=== PATIENT | female | born 1970 | race Caucasian/White ===

== ENCOUNTER → 2017-02-20 | Outpatient (CLI) | payer OTHER ==
--- NOTE | 2017-02-20 19:25 | Diagnostic Imaging Report ---
INDICATION: Digital mammogram bilateral screening. There are no prior studies available for comparison. At this time, there are no current complaints. The current study was also evaluated with a Computer Aided Detection (CAD) system. FINDINGS: The fibroglandular tissue in both breasts is heterogeneously dense. This does limit the sensitivity of this exam. In the retroareolar region of the right breast, there is a small area of increased density. This finding is probably secondary to superimposition of the fibroglandular tissue in this region. Even so, as there are no previous studies available for comparison, I would recommend that a compression view of this area be obtained in the CC and MLO projections for further study. Ultrasound should also be performed. The right breast is unremarkable. IMPRESSION: Additional mammographic views and ultrasound of the left breast would be recommended for further study. ACR BI-RADS Category 0: Incomplete. (Needs additional imaging evaluation). Result letter will be mailed to the patient. Note: At least 10% of breast cancer is not imaged by mammography. Dictated by: Dictated on workstation # [id number]
== END ==
LOC: RAD 08:07
DX: Z12.31 Encounter for screening mammogram for malignant neoplasm of breast (principal)
CPT/HCPCS: 77067

== ENCOUNTER → 2017-03-27 | Outpatient (CLI) | payer OTHER ==
--- NOTE | 2017-03-27 18:55 | Diagnostic Imaging Report ---
Left breast diagnostic mammogram. INDICATION: Focal asymmetry in the retroareolar aspect of the left breast. The current study was also evaluated with a Computer Aided Detection (CAD) system. FINDINGS: Focal compression views demonstrate no definite underlying lesion in the retroareolar area, the location of focal asymmetry seen on previous study. IMPRESSION: No definite underlying abnormality in the retroareolar region. Ultrasound evaluation pending. ACR BI-RADS Category 0: Incomplete. (Needs additional imaging evaluation). Result letter will be mailed to the patient. Note: At least 10% of breast cancer is not imaged by mammography. Dictated by: Dictated on workstation # [id number]
--- NOTE | 2017-03-27 19:13 | Diagnostic Imaging Report ---
Left breast ultrasound. INDICATION: Focal asymmetry in the retroareolar region. FINDINGS: Unremarkable breast parenchyma is seen with no focal lesion. IMPRESSION: Negative exam. The focal asymmetry seen on mammography is probably summation artifact of parenchyma. Six-month follow-up mammogram is recommended to ensure no adverse development. ACR BI-RADS Category 3: Probably benign findings. Result letter will be mailed to the patient. Note: At least 10% of breast cancer is not imaged by mammography. Dictated by: Dictated on workstation # [id number]
== END ==
LOC: RAD 13:30
DX: R92.8 Other abnormal and inconclusive findings on diagnostic imaging of breast (principal)
CPT/HCPCS: 76642

== ENCOUNTER → 2018-01-24 | Outpatient (CLI) | payer OTHER ==
--- NOTE | 2018-01-24 08:47 | Diagnostic Imaging Report ---
Indication: Followup of left breast density. Correlation is made with prior exam from 02/20/2017. Findings: The area of the density in the retroareolar left breast appears stable and consistent with fibroglandular tissue. No mass is identified. No malignant-appearing microcalcifications are seen. The axillae are unremarkable. Impression: BI-RADS category 1. No mammographic features suspicious for malignancy are identified. ACR BI-RADS Category 1: Negative. Result letter will be mailed to the patient. Note: At least 10% of breast cancer is not imaged by mammography. Dictated by: Dictated on workstation # [id number]
== END ==
LOC: RAD 07:43
PROVIDERS: ATTEND Nurse Practitioner Family
DX: N64.89 Other specified disorders of breast (principal)
CPT/HCPCS: 77066

== ENCOUNTER 2018-08-13 15:57 | Outpatient (RCR) | payer OTHER | END 2018-08-18 07:46 | disposition home or self-care (01) | PROVIDERS: ATTEND Family Medicine | DX: M25.512 Pain in left shoulder (principal) ==

== ENCOUNTER 2018-09-04 08:17 | Outpatient (RCR) | payer OTHER | END 2018-10-15 14:30 | disposition home or self-care (01) | PROVIDERS: ATTEND Family Medicine | DX: M25.512 Pain in left shoulder (principal) ==

== ENCOUNTER → 2019-03-31 | Outpatient (CLI) | payer OTHER ==
--- NOTE | 2019-03-31 15:58 | Diagnostic Imaging Report ---
INDICATION: Back pain TECHNIQUE: AP, Lateral imaging of the lumbar spine CORRELATION STUDY: None FINDINGS: There is mild leftward curvature of the lumbar spine, apex at L2 level. Lumbar vertebral body heights are overall fairly well maintained. There is diffuse disc space narrowing at all levels but most pronounced at the L3-L4, L4-L5 and L5-S1 levels. Mild endplate lipping. SI joints are unremarkable. IMPRESSION: No radiographic evidence for acute bony abnormality of the lumbar spine. Dictated by: Dictated on workstation # [id number]
--- NOTE | 2019-03-31 17:59 | Diagnostic Imaging Report ---
INDICATION: Back pain through the level of the neck through the lower back. No known injury. TECHNIQUE: AP, Lateral and Swimmers imaging of the thoracic spine. CORRELATION STUDY: None. FINDINGS: Rightward curvature of the [id number] thoracic spine, apex at T8 level with minimal leftward curvature superiorly of the thoracic spine and thoracolumbar junction. The kyphotic curvature is slightly reduced. The thoracic vertebral body heights demonstrate minimal anterior wedging in the mid aspect. Rather advanced multilevel disc space narrowing is noted with endplate lipping. An acute-appearing compression does not appear to be suggested. IMPRESSION: Rather advanced thoracic spondylosis. Multilevel disc space narrowing. Endplate osteophyte formation. Dictated on workstation # [id number]
--- NOTE | 2019-03-31 18:35 | Diagnostic Imaging Report ---
INDICATION: Neck pain. Abdominal bloating x1 week. TECHNIQUE: AP, lateral and odontoid views cervical spine. CORRELATION STUDY: None. FINDINGS: There is visualization of C1 through C6. The C6-C7 and C7-T1 levels are not well visualized despite accompanying swimmer's views of the thoracic spine study. There is straightening and reversal of the normal cervical lordosis. Alignment is otherwise anatomic. Slight anterior wedging at C4, C5, and C6 levels. Moderate disc space narrowing at C4-C5, C5-C6, and C6-C7 levels suggested. Prominent osteophytes, particularly anteriorly. The odontoid is unremarkable with the lateral masses of C1-C2 aligned. Prevertebral soft tissues are unremarkable. IMPRESSION: 1. Negative for acute findings of the cervical spine. Dictated on workstation # [id number]
== END ==
LOC: RAD 13:59
PROVIDERS: ATTEND Nurse Practitioner Family
DX: M47.814 Spondylosis without myelopathy or radiculopathy, thoracic region (principal); M51.34 Other intervertebral disc degeneration, thoracic region; M25.78 Osteophyte, vertebrae; M54.5 Low back pain; M54.2 Cervicalgia
CPT/HCPCS: 72040; 72072; 72100

== ENCOUNTER → 2019-07-13 | Outpatient (CLI) | payer OTHER ==
[2019-07-13 12:16] LABS: BASOPHILS % (AUTO) 0 % (0-10); EOSINOPHILS # (AUTO) 0.1 10^3/uL (0.0-0.3); EOSINOPHILS % (AUTO) 1 % (0-10); HEMATOCRIT 42 % (35-52); LYMPHOCYTES # (AUTO) 2.5 X 10^3 (1.0-4.0); LYMPHOCYTES % (AUTO) 29 % (12-44); MEAN CORPUSCULAR HEMOGLOBIN 29 PG (25-34); MEAN CORPUSCULAR HGB CONC 33 G/DL (32-36); MEAN CORPUSCULAR VOLUME 86 FL (80-99); MEAN PLATELET VOLUME 9.3 FL (7.4-10.4); MONOCYTES # (AUTO) 0.6 X 10^3 (0.0-1.0); MONOCYTES % (AUTO) 7 % (0-12); NEUTROPHILS # (AUTO) 5.4 X 10^3 (1.8-7.8); NEUTROPHILS % (AUTO) 63 % (42-75); PLATELET COUNT 314 10^3/uL (130-400); RED CELL DISTRIBUTION WIDTH 13.1 % (10.0-14.5); WHITE BLOOD COUNT 8.7 10^3/uL (4.3-11.0)
[2019-07-13 12:33] LABS: ALANINE AMINOTRANSFERASE 71 U/L (0-55); ALBUMIN 4.3 GM/DL (3.2-4.5); ALKALINE PHOSPHATASE 87 U/L (40-136); BILIRUBIN,TOTAL 0.2 MG/DL (0.1-1.0); BUN/CREATININE RATIO 14; CALCIUM 9.8 MG/DL (8.5-10.1); CARBON DIOXIDE 26 MMOL/L (21-32); CHLORIDE 103 MMOL/L (98-107); CREATININE SERUM 0.95 MG/DL (0.60-1.30); GFR ESTIMATED > 60; GLUCOSE 159 MG/DL (70-105); MAGNESIUM 1.7 MG/DL (1.6-2.4); POTASSIUM 4.1 MMOL/L (3.6-5.0); SODIUM 141 MMOL/L (135-145); TOTAL PROTEIN 8.1 GM/DL (6.4-8.2)
== END ==
LOC: CARD 11:58
PROVIDERS: ATTEND Nurse Practitioner Family
DX: M62.838 Other muscle spasm (principal); M25.50 Pain in unspecified joint; R00.0 Tachycardia, unspecified
CPT/HCPCS: 36415; 80053; 83735; 84484; 85025; 93005

== ENCOUNTER 2019-07-18 15:52 | Emergency (ER) | payer OTHER ==
[~2019-07-18] VITALS: Ht 162.6 cm; Wt 99.8 kg
--- NOTE | 2019-07-18 16:31 | ED Cardiac General ---
History of Present Illness General Chief Complaint: Cardiac/General Problems Stated Complaint: TROUBLE BREATHING,HIGH HEART RATE Nursing Triage Note: PT AMB TO RM 9 WITH COMPLAINT OF HIGH HR AND SOA. STATES THAT HAS BEEN GOING ON SINCE THE . STATES SHE SAW JUAN FRANCISCO AND HAD EKG DONE AT [facility]. Source: patient Exam Limitations: no limitations History of Present Illness Date Seen by Provider: Jul 18, 2019 Time Seen by Provider: 16:06 Initial Comments The patient presents to the ER for a post of concerns. Initially is that she is having a very fast heart rate. Nursing states that her heart rate is in the 80s presently. She's not having any chest pain. She been worked up by the nurse practitioner at her primary care office Dr. Wei for restless leg syndrome and feeling of some numbness and burning that comes on worse at night in her left arm ulnar distribution of her hand and upper arm all with her shoulder as well as bilateral legs. She does not have diabetes or any other kind of medical disease that she is aware of. Her primary care office thought she might have rheumatoid so sent her to a payroll tax analyst. She was told she did not have rheumatoid. She has not had any imaging of her back. No trauma to her back. She does express some hyperalgesia to light touch of her extremities. Her payroll tax analyst thought she might have fibromyalgia and started her on Cymbalta 3 weeks ago. While she was at the primary care office it was no cristina that her blood pressure was mildly elevated so they had her checking her blood pressure at rest routinely at home. After starting Cymbalta for the past couple weeks she has had elevated heart rate and went into her primary care office when it was 130s at rest and they sent her to the ER. She said she had EKG and labs and workup and told that it was okay and started her on metoprolol 25 mg succinate. Earlier this week she had an elevated heart rate in the 1 teens to 120s regular and called her primary care office and Dr. Wei increased her metoprolol to 1-1/2 tablets daily. Last night she still had elevated heart rate as well as today so she came to the ER again. For the past day she's had some described as occasional crushing chest pain, sweats and nausea. This does not radiate anywhere. She is not feeling short of breath right now. She does not take blood thinner have a history of coronary disease. She denies smoking drinking or IV drug use. After reading on the Internet she's concerned that maybe the Cymbalta is causing her racing heart rate says she has no family history of coronary disease or rapid heart rate so she stopped taking the Cymbalta today. Allergies and Home Medications Allergies Coded Allergies: NKANo Known Allergies (Unverified Allergy, Unknown, 12/19/06) levofloxacin (Verified Allergy, Unknown, 07/18/19) Patient Home Medication List Home Medication List Reviewed: Yes Review of Systems Review of Systems Constitutional: chills, diaphoresis; No fever, No malaise EENTM: No Blurred Vision, No Double Vision Respiratory: Denies Cough, Denies Shortness of Air, Denies Wheezing Cardiovascular: See HPI, Chest Pain; Denies Edema Gastrointestinal: Denies Constipated, Denies Diarrhea; Nausea; Denies Vomiting Genitourinary: Denies Discharge, Denies Drainage Musculoskeletal: No back pain, No joint pain Skin: No pruritus, No rash Past Qngiitp-Thdegf-Ybdewt Hx Patient Social History Alcohol Use: Denies Use Recreational Drug Use: No Smoking Status: Never a Smoker Recent Foreign Travel: No Contact w/Someone Who Travel: No Recent Infectious Disease Expo: No Recent Hopitalizations: No Physical Abuse: No Sexual Abuse: No Seasonal Allergies Seasonal Allergies: No Past Medical History Surgeries: Yes Abdominal, Hysterectomy, Orthopedic Respiratory: No Cardiac: Yes Hypertension Neurological: No 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 oz. 99.689003eq; BMI Method:Stated General Appearance: No Apparent Distress, WD/WN, Anxious HEENT: PERRL/EOMI, Pharynx Normal, Moist Mucous Membranes Neck: Full Range of Motion, Supple Respiratory: Chest Non Tender, Lungs Clear, Normal Breath Sounds, No Accessory Muscle Use, No Respiratory Distress Cardiovascular: Regular Rate, Rhythm, Normal Peripheral Pulses, Other (trace bilateral pedal edema) Gastrointestinal: Normal Bowel Sounds, Non Tender, Soft Extremity: Normal Capillary Refill, Normal Range of Motion, No Pedal Edema Neurologic/Psychiatric: Alert, Oriented x3, No Motor/Sensory Deficits Skin: Normal Color, Warm/Dry Progress/Results/Core Measures Results/Orders Lab Results Laboratory Tests Test 07/18/19 16:12 Range/Units White Blood Count 8.3 4.3-11.0 10^3/uL Red Blood Count 5.03 4.35-5.85 10^6/uL Hemoglobin 14.3 11.5-16.0 G/DL Hematocrit 43 35-52 % Mean Corpuscular Volume 85 80-99 FL Mean Corpuscular Hemoglobin 28 25-34 PG Mean Corpuscular Hemoglobin Concent 33 32-36 G/DL Red Cell Distribution Width 13.1 10.0-14.5 % Platelet Count 362 130-400 10^3/uL Mean Platelet Volume 9.2 7.4-10.4 FL Neutrophils (%) (Auto) 56 42-75 % Lymphocytes (%) (Auto) 36 12-44 % Monocytes (%) (Auto) 7 0-12 % Eosinophils (%) (Auto) 2 0-10 % Basophils (%) (Auto) 0 0-10 % Neutrophils # (Auto) 4.6 1.8-7.8 X 10^3 Lymphocytes # (Auto) 3.0 1.0-4.0 X 10^3 Monocytes # (Auto) 0.6 0.0-1.0 X 10^3 Eosinophils # (Auto) 0.1 0.0-0.3 10^3/uL Basophils # (Auto) 0.0 0.0-0.1 10^3/uL Prothrombin Time 12.5 12.2-14.7 SEC INR Comment 0.9 0.8-1.4 Activated Partial Thromboplast Time 25 24-35 SEC Sodium Level 140 135-145 MMOL/L Potassium Level 3.8 3.6-5.0 MMOL/L Chloride Level 103 98-107 MMOL/L Carbon Dioxide Level 24 21-32 MMOL/L Anion Gap 13 5-14 MMOL/L Blood Urea Nitrogen 12 7-18 MG/DL Creatinine 0.83 0.60-1.30 MG/DL Estimat Glomerular Filtration Rate > 60 BUN/Creatinine Ratio 14 Glucose Level 121 H 70-105 MG/DL Calcium Level 9.6 8.5-10.1 MG/DL Corrected Calcium 9.2 8.5-10.1 MG/DL Magnesium Level 1.6 1.6-2.4 MG/DL Total Bilirubin 0.3 0.1-1.0 MG/DL Aspartate Amino Transf (AST/SGOT) 21 5-34 U/L Alanine Aminotransferase (ALT/SGPT) 38 0-55 U/L Alkaline Phosphatase 102 40-136 U/L Myoglobin 45.2 10.0-92.0 NG/ML Troponin I < 0.028 <0.028 NG/ML Total Protein 8.6 H 6.4-8.2 GM/DL Albumin 4.5 3.2-4.5 GM/DL My Orders Orders - LAKHWINDER JENKINS Continuous Ekg Monitoring (07/18/19 15:54) Ekg Tracing (07/18/19 15:54) Cbc With Automated Diff (07/18/19 16:25) Comprehensive Metabolic Panel (07/18/19 16:25) Troponin I (07/18/19 16:25) Aspirin Chewable Tablet (Baby Aspirin Ch (07/18/19 16:45) Magnesium (07/18/19 16:32) Chest 1 View, Ap/Pa Only (07/18/19 16:32) Myoglobin Serum (07/18/19 16:32) Protime With Inr (07/18/19 16:32) Partial Thromboplastin Time (07/18/19 16:32) Ed Iv/Invasive Line Start (07/18/19 16:32) Nitroglycerin 0.4 Mg Btl 25's (Nitrostat (07/18/19 16:45) Troponin I (07/18/19 18:02) Medications Given in ED Current Medications Medications Dose Ordered Sig/Josiah Route Start Time Stop Time Status Last Admin Dose Admin Aspirin 324 mg ONCE ONCE PO 07/18/19 16:45 07/18/19 16:46 DC 07/18/19 16:45 324 MG Nitroglycerin 0.4 mg NEEDED PRN SL 07/18/19 16:45 07/18/19 17:20 0.4 MG Vital Signs/I&O 07/18/19 15:56 Temp 98.3 Pulse 106 Resp 13 B/P (MAP) 163/108 (126) Pulse Ox 99 O2 Delivery Room Air Blood Pressure Mean: 126 Progress Progress Note #1: Time: 16:34 Progress Note Chest pain since yesterday. Not presently. Patient doesn't appear to be in acute distress and has normal vital signs with a mildly elevated blood pressure. We'll give her some aspirin. EKG sinus rhythm. Labs included troponin. Patient does have an EKG on file tachycardia 118 sinus rhythm however she does not have a ER note associated with it. She clarifies that she did come over EKG but did not come to the ER. She is still having a little tightness in the middle of her chest and try nitroglycerin as long as her blood pressure stays up. Progress Note #2: Time: 18:04 Progress Note Heart score 2 points low risk. 0.91.7% 30-day MACE. Repeat troponin at 3 hours and if negative, discharge home with outpatient follow-up. The patient says the nitroglycerin may have felt a little bit but her tightness in her chest is not as intense now than it was before but had no immediate effect. Plan will be to help her discontinue her Cymbalta. She wants to stop it since it coincides with the time she started experiencing the sinus tachycardia. Give it every other day for a few more days. Increase her metoprolol to 50 mg and stop taking the tablet in half. Follow-up with primary care in a couple weeks to see if this has improved her symptoms. Offered her a referral to cardiology if she would like help managing her symptoms. Initial ECG Impression Date: Jul 18, 2019 Initial ECG Impression Time: 16:05 Initial ECG Rate: 89 Initial ECG Rhythm: Normal Sinus Initial ECG Intervals: Normal Initial ECG Impression: Normal Comment Normal sinus rhythm without ST changes. Lateral lead respiratory motion artifact. Diagnostic Imaging Diagonstic Imaging: Xray Plain Films/CT/US/NM/MRI: chest (1v) Comments NAME: GIO WHITNEY MED REC#: [id number] PT STATUS: REG ER : 1970 PHYSICIAN: LAKHWINDER JENKINS MD ADMIT DATE: 07/18/19/ER Signed Date of Exam:07/18/19 CHEST 1 VIEW, AP/PA ONLY INDICATION: Dyspnea. COMPARISON: 02/23/2010. DISCUSSION: Single portable upright view of the chest was obtained. No adverse interval change. Stable normal heart size. No focal consolidation, pleural fluid, or pneumothorax. No osseous abnormality. IMPRESSION: 1. Negative portable chest. Dictated by: Dictated on workstation # [id number] Dict: 07/18/19 165 Trans: 07/18/191654 [facility] [id number] Interpreted by: XIANG GRANDE MD Electronically signed by: XIANG GRANDE MD 07/18/191654 Reviewed: Reviewed by Me Transfer of Care Time: 18:20 Care transferred to: Ajit Mares APRN Departure Impression Primary Impression: Chest discomfort Additional Impression: Inappropriate sinus tachycardia Disposition: 01 HOME, SELF-CARE Condition: Stable Departure-Patient Inst. Decision time for Depature: 18:20 Referrals: MARLENE WEI MD (PCP/Family) Primary Care Physician RAUL CORTES MD Patient Instructions: Tachycardia (DC) Add. Discharge Instructions: Please return to the nearest ER if you experience chest pain or shortness of breath. Start taking 2 tablets of your metoprolol for a total of 50 mg a day. If you start to have symptoms of lightheadedness or brownouts on rising from sitting or lying then you should reduce the metoprolol back to one tablet daily. Take your Cymbalta tomorrow, skip a day and then take another tablet. Plan to follow up in 2 weeks with primary care to discuss whether stopping the Cymbalta or changing the metoprolol has helped your symptoms. You may call and follow up with cardiology next week if you wish for help managing your tachycardia. All discharge instructions reviewed with patient and/or family. Voiced understanding. Scripts Metoprolol Succinate (Metoprolol Succinate) 25 Mg Tab.er.24h 50 MG PO DAILY for 14 Days, #30 TAB 0 Refills Prov: LAKHWINDER JENKINS 07/18/19 Copy Copies To 1: RAUL CORTES MD, TITUS J Jul 18, 2019 16:31
[2019-07-18 16:35] LABS: BASOPHILS % (AUTO) 0 % (0-10); EOSINOPHILS # (AUTO) 0.1 10^3/uL (0.0-0.3); EOSINOPHILS % (AUTO) 2 % (0-10); HEMATOCRIT 43 % (35-52); HEMOGLOBIN 14.3 G/DL (11.5-16.0); LYMPHOCYTES % (AUTO) 36 % (12-44); MEAN CORPUSCULAR HEMOGLOBIN 28 PG (25-34); MEAN CORPUSCULAR HGB CONC 33 G/DL (32-36); MEAN CORPUSCULAR VOLUME 85 FL (80-99); MEAN PLATELET VOLUME 9.2 FL (7.4-10.4); MONOCYTES # (AUTO) 0.6 X 10^3 (0.0-1.0); MONOCYTES % (AUTO) 7 % (0-12); NEUTROPHILS # (AUTO) 4.6 X 10^3 (1.8-7.8); NEUTROPHILS % (AUTO) 56 % (42-75); PLATELET COUNT 362 10^3/uL (130-400); RED CELL DISTRIBUTION WIDTH 13.1 % (10.0-14.5); WHITE BLOOD COUNT 8.3 10^3/uL (4.3-11.0)
[2019-07-18] MEDS ORDERED: ASPIRIN 81 MG CHEW (CHILDREN'S ASA) PO ONE (16:45)
[2019-07-18] MEDS ORDERED: NITROGLYCERIN 0.4 MG SL TABS BTL 25'S SL PRN (16:45)
--- NOTE | 2019-07-18 16:53 | Diagnostic Imaging Report ---
INDICATION: Dyspnea. COMPARISON: 02/23/2010. DISCUSSION: Single portable upright view of the chest was obtained. No adverse interval change. Stable normal heart size. No focal consolidation, pleural fluid, or pneumothorax. No osseous abnormality. IMPRESSION: 1. Negative portable chest. Dictated by: Dictated on workstation # [id number]
[2019-07-18 16:56] LABS: ALANINE AMINOTRANSFERASE 38 U/L (0-55); ALBUMIN 4.5 GM/DL (3.2-4.5); ALKALINE PHOSPHATASE 102 U/L (40-136); BILIRUBIN,TOTAL 0.3 MG/DL (0.1-1.0); BUN/CREATININE RATIO 14; CALCIUM 9.6 MG/DL (8.5-10.1); CARBON DIOXIDE 24 MMOL/L (21-32); CHLORIDE 103 MMOL/L (98-107); CREATININE SERUM 0.83 MG/DL (0.60-1.30); GFR ESTIMATED > 60; GLUCOSE 121 MG/DL (70-105); MAGNESIUM 1.6 MG/DL (1.6-2.4); POTASSIUM 3.8 MMOL/L (3.6-5.0); SODIUM 140 MMOL/L (135-145); TOTAL PROTEIN 8.6 GM/DL (6.4-8.2)
[2019-07-18 17:03] LABS: INR 0.9 (0.8-1.4); PROTHROMBIN TIME PATIENT 12.5 SEC (12.2-14.7)
[2019-07-18] MEDS ORDERED: METO-387 PO (18:23)
--- NOTE | 2019-07-18 19:00 | NUR ---
Recieved report from RASHIDA Gifford to assume care of pt @ this time.
[2019-07-18 19:30] VITALS: BP 147/96
== END 2019-07-18 19:30 | disposition home or self-care (01) ==
LOC: EDUNIT# 15:52 → ER 15:53
DX: R07.89 Other chest pain (principal); R00.0 Tachycardia, unspecified; I10 Essential (primary) hypertension; M79.7 Fibromyalgia; E11.9 Type 2 diabetes mellitus without complications; Z88.1 Allergy status to other antibiotic agents; Z90.710 Acquired absence of both cervix and uterus
CPT/HCPCS: 36415; 71045; 80053; 83735; 83874; 84484; 85025; 85610; 85730; 93005

== ENCOUNTER 2019-08-20 08:11 | Outpatient (RCR) | payer OTHER ==
[~2019-08-20 08:11] MED LIST: METO-387 PO
== END 2019-11-18 | disposition home or self-care (01) ==
LOC: CARD 08:11
PROVIDERS: ATTEND Internal Medicine Cardiovascular Disease
DX: I11.9 Hypertensive heart disease without heart failure (principal); E78.2 Mixed hyperlipidemia; E11.9 Type 2 diabetes mellitus without complications; R07.89 Other chest pain
CPT/HCPCS: 93225; 93226; 93306

== ENCOUNTER → 2019-10-07 | Outpatient (CLI) | payer OTHER ==
[2019-10-07 17:40] VITALS: BP 138/80
--- NOTE | 2019-10-07 17:40 | Cardiology Stress Test Report ---
Stress Test Report Date of Procedure/Referring: Date of Procedure: Oct 07, 2019 PCP Deepa Herrera Admitting Physician Buffy Wei MD Indications: cp Baseline Heart Rate: 108 Baseline Blood Pressure: Blood Pressure Systolic: 138 Blood Pressure Diastolic: 80 Baseline EKG: Baseline EKG: Normal sinus rhythm Summary/Conclusion: Summary: In summary, the patient started exercising with a baseline heart rate, blood pressure and EKG mentioned above Patient was able to exercise for a total of 9 minutes on Jean-Pierre protocol, 10.3 METs Maximum heart rate 153 Maximum blood pressure 157/76 Stress EKG Minimal nondiagnostic changes Recovery EKG Return to baseline Conclusion: 1. Good exercise tolerance for a total of 9 minutes on Jean-Pierre protocol, 10.3 METs, achieving 89 percent of maximum expected heart rate 2. Minimal nondiagnostic EKG changes with exercise returned to baseline during recovery 3. No arrhythmia was noted RAUL CORTES MD Oct 07, 2019 17:40 POS
== END ==
LOC: CARD 13:49
PROVIDERS: ATTEND Physician Assistant
DX: E78.2 Mixed hyperlipidemia (principal); I10 Essential (primary) hypertension; R00.0 Tachycardia, unspecified; R09.89 Other specified symptoms and signs involving the circulatory and respiratory systems
CPT/HCPCS: 93017

== ENCOUNTER → 2019-10-20 | Outpatient (CLI) | payer OTHER ==
--- NOTE | 2019-10-20 12:29 | Diagnostic Imaging Report ---
INDICATION: Dyspnea. FINDINGS: The lungs are clear. The heart and vessels are normal. There is no effusion or pneumothorax. IMPRESSION: No acute-appearing abnormality. Dictated by: Dictated on workstation # [id number]
[2019-10-20 12:37] LABS: ABG BASE EXCESS 1.1 MMOL/L (-2.5-2.5); ABG OXYGEN SATURATION 96 % (94-100); ABG PCO2 40 MMHG (35-45); ABG PH 7.41 (7.37-7.43); ABG PO2 74 MMHG (79-93); ABG TCO2 26.7 MMOL/L (21.0-31.0)
[2019-10-20 12:39] LABS: ALLENS TEST YES-POS; INSPIRED O2 RA; PATIENT TEMP 36; VENTILATOR NO
== END ==
LOC: RAD 11:44
PROVIDERS: ATTEND Nurse Practitioner Family
DX: G47.33 Obstructive sleep apnea (adult) (pediatric) (principal); K90.0 Celiac disease; R07.89 Other chest pain
CPT/HCPCS: 36600; 71046; 82805

== ENCOUNTER → 2019-11-16 | Outpatient (CLI) | payer OTHER ==
[~2019-11-16] MED LIST changes: +RT-ALBUTEROL SULF 2.5 MG/3 ML PRE-MIX VIAL INH ONE
== END ==
LOC: RT 12:57
PROVIDERS: ATTEND Nurse Practitioner Family
DX: G47.33 Obstructive sleep apnea (adult) (pediatric) (principal); K90.0 Celiac disease; R06.00 Dyspnea, unspecified
CPT/HCPCS: 94060; 94726; 94729

== ENCOUNTER → 2020-01-06 | Outpatient (CLI) | payer OTHER ==
[~2020-01-06] MED LIST changes: +HOLD METFORMIN - RECEIVED CONTRAST 20 ML VIAL IV SCH; +IOHEXOL 350 MG/ML 100 ML (OMNIPAQUE 350) VIAL IV ONE; -METO-387 PO; +MTP25TSR PO; +NS 100 ML (IVPB) BAG IV ONE; -RT-ALBUTEROL SULF 2.5 MG/3 ML PRE-MIX VIAL INH ONE
[2020-01-06 12:15] LABS: BUN/CREATININE RATIO 19; CREATININE SERUM 0.78 MG/DL (0.60-1.30); GFR ESTIMATED > 60
--- NOTE | 2020-01-06 13:11 | Diagnostic Imaging Report ---
PROCEDURE: CT angiography of the chest with contrast. TECHNIQUE: Multiple contiguous axial images were obtained through the chest after uneventful bolus administration of intravenous contrast. 3D reconstructed CTA MIP acquisitions were also performed. Auto Exposure Controls were utilized during the CT exam to meet ALARA standards for radiation dose reduction. INDICATION: Leg pain, swelling, difficulty with breathing. FINDINGS: There are no intraluminal pulmonary arterial filling defects. There were no findings of pulmonary arterial embolus. The thoracic aorta is patent and nonaneurysmal. There is no pleural or pericardial effusion. No acute soft tissue or osseous chest wall pathology. The heart size is within normal limits. There were no findings of pulmonary edema or failure. No pleural fluid. No consolidation. No lung mass. Upper abdomen demonstrates previous cholecystectomy with no free fluid or free air. IMPRESSION: Negative for PE or other acute abnormalities. Dictated by: Dictated on workstation # [id number]
--- NOTE | 2020-01-06 13:43 | Diagnostic Imaging Report ---
PROCEDURE: US Venous Lower Ext Asael. TECHNIQUE: Multiple Real-time grayscale images were obtained over the lower extremities in various projections, bilaterally. Additional duplex Doppler and color Doppler images were also obtained. INDICATION: Lower extremity swelling. FINDINGS: The femoropopliteal deep venous system bilaterally is widely patent. No deep or superficial thrombus. No mass or fluid collection is demonstrated. IMPRESSION: Normal negative bilateral lower extremity venous Doppler and ultrasound exam. Dictated by: Dictated on workstation # [id number]
== END ==
LOC: RAD 11:20
PROVIDERS: ATTEND Nurse Practitioner Family
DX: M79.89 Other specified soft tissue disorders (principal); R06.89 Other abnormalities of breathing; M79.606 Pain in leg, unspecified; R06.00 Dyspnea, unspecified; G47.33 Obstructive sleep apnea (adult) (pediatric)
CPT/HCPCS: 36415; 71275; 82565; 84520; 93970

== ENCOUNTER → 2021-11-22 | Outpatient (CLI) | payer OTHER ==
[~2021-11-22] MED LIST changes: -HOLD METFORMIN - RECEIVED CONTRAST 20 ML VIAL IV SCH; -IOHEXOL 350 MG/ML 100 ML (OMNIPAQUE 350) VIAL IV ONE; -NS 100 ML (IVPB) BAG IV ONE
--- NOTE | 2021-11-22 09:53 | Diagnostic Imaging Report ---
Digital mammogram INDICATION: Bilateral screening This study was compared to the prior exams of 01/24/2018 and 02/20/2017. At this time there are no current complaints. The current study was also evaluated with a Computer Aided Detection (CAD) system. FINDINGS: The fibroglandular tissue in both breasts is heterogeneously dense. This does limit the sensitivity of this exam. Overall, there does not appear to have been any significant change when compared to the prior study. No primary or secondary sign of malignancy is noted. IMPRESSION: 1. There is no radiographic evidence for malignancy. 2. The patient should have her annual bilateral screening mammogram on schedule in November 2022. ACR category 1 ACR BI-RADS Category 1: Negative. Result letter will be mailed to the patient. Note: At least 10% of breast cancer is not imaged by mammography. Dictated by: Dictated on workstation # [id number]
== END ==
LOC: RAD 07:19
PROVIDERS: ATTEND Family Medicine
DX: Z12.31 Encounter for screening mammogram for malignant neoplasm of breast (principal)
CPT/HCPCS: 77063; 77067

== ENCOUNTER → 2022-01-02 | Outpatient (CLI) | payer OTHER ==
[2022-01-02 11:40] LABS: HEMATOCRIT 40 % (35-52); HEMOGLOBIN 12.9 g/dL (11.5-16.0); MEAN CORPUSCULAR HEMOGLOBIN 28 pg (25-34); MEAN CORPUSCULAR HGB CONC 32 g/dL (32-36); MEAN CORPUSCULAR VOLUME 87 fL (80-99); MEAN PLATELET VOLUME 9.3 fL (9.0-12.2); PLATELET COUNT 262 10^3/uL (130-400); WHITE BLOOD COUNT 7.5 10^3/uL (4.3-11.0)
--- NOTE | 2022-01-02 11:55 | Diagnostic Imaging Report ---
CHEST PA/LAT (2 VIEW) Indication: Cough, shortness of breath Comparison: 10/30/2019 Findings: No pulmonary mass or consolidation. No pleural effusion or pneumothorax. Normal heart size and mediastinal contours. Impression: No acute cardiopulmonary process. Dictated by: Dictated on workstation # [id number]
[2022-01-02 12:04] LABS: ALBUMIN 3.8 GM/DL (3.2-4.5); BILIRUBIN,TOTAL 0.4 MG/DL (0.1-1.0); CREATININE SERUM 0.76 MG/DL (0.60-1.30); TOTAL PROTEIN 7.2 GM/DL (6.4-8.2)
== END ==
LOC: RAD 11:06
PROVIDERS: ATTEND Nurse Practitioner Family
DX: R05.8 Other specified cough (principal); R06.02 Shortness of breath; E11.9 Type 2 diabetes mellitus without complications; Z86.16 Personal history of COVID-19
CPT/HCPCS: 36415; 71046; 80053; 83036; 85027; 85379

== ENCOUNTER 2022-11-08 12:19 | Outpatient (RCR) | payer OTHER ==
[2022-11-01] MEDS: FERRIC CARBOXYMALTOSE INJ 750 MG in NS (IVPB) 250 ML IV SCH (12:52)
[2022-11-01 12:54] VITALS: BP 134/92
[~2022-11-08] VITALS: Ht 165.1 cm; Wt 90.9 kg
[2022-11-08] MEDS: FERRIC CARBOXYMALTOSE INJ 750 MG in NS (IVPB) 250 ML IV SCH (12:46)
[2022-11-08 12:53] VITALS: BP 128/81
== END 2022-11-17 | disposition home or self-care (01) ==
LOC: SDC 12:19
PROVIDERS: ATTEND Nurse Practitioner Family
DX: D50.9 Iron deficiency anemia, unspecified (principal)
CPT/HCPCS: 96365

== ENCOUNTER → 2023-05-07 | Outpatient (CLI) | payer OTHER ==
[~2023-05-07] MED LIST changes: +RT-ALBUTEROL SULF 2.5 MG/3 ML PRE-MIX VIAL INH ONE
== END ==
LOC: RT 12:04
PROVIDERS: ATTEND Nurse Practitioner Family
DX: R06.02 Shortness of breath (principal)
CPT/HCPCS: 94060; 94726; 94729

== ENCOUNTER → 2023-06-11 | Outpatient (CLI) | payer OTHER ==
[~2023-06-11] MED LIST changes: +HOLD METFORMIN - RECEIVED CONTRAST 20 ML VIAL IV SCH; +IOHEXOL 350 MG/ML 100 ML (OMNIPAQUE 350) VIAL IV ONE; +NS 100 ML (IVPB) BAG IV ONE; -RT-ALBUTEROL SULF 2.5 MG/3 ML PRE-MIX VIAL INH ONE
--- NOTE | 2023-06-11 13:23 | Diagnostic Imaging Report ---
INDICATION: Chest pain and tightness. TECHNIQUE: Multiple contiguous axial images were obtained through the chest after administration of intravenous contrast. Auto Exposure Controls were utilized during the CT exam to meet ALARA standards for radiation dose reduction. COMPARISON: Prior CT of 01/06/2020. FINDINGS: There are no enlarged mediastinal or hilar nodes. There are no enlarged axillary nodes. There is no pleural or pericardial fluid. The visualized portions of the upper abdomen demonstrate mild fatty infiltration of the liver with no acute finding. There are diffuse degenerative changes in the thoracic spine with no overt acute bony abnormality. Lung windows demonstrate a small 5 mm pulmonary nodule in the right upper lobe laterally which appears unchanged compared to the prior study. There is no pulmonary infiltrate or suspicious lesion. IMPRESSION: No adenopathy, pleural fluid, or acute process in the chest. There is mild fatty infiltration of the liver. There is a small 5 mm pulmonary nodule in the right upper lobe which is stable compared to 01/06/2020 and therefore could be considered a benign finding. Dictated by: Dictated on workstation # [id number]
== END ==
LOC: RAD 11:15
PROVIDERS: ATTEND Nurse Practitioner Family
DX: K76.0 Fatty (change of) liver, not elsewhere classified (principal); R91.1 Solitary pulmonary nodule; R06.02 Shortness of breath; R07.9 Chest pain, unspecified
CPT/HCPCS: 71260

== ENCOUNTER 2023-07-17 05:52 | Outpatient (CLI) | payer OTHER ==
[~2023-07-17] VITALS: Ht 165 cm; Wt 113.8 kg
[~2023-07-17 05:52] MED LIST changes: -HOLD METFORMIN - RECEIVED CONTRAST 20 ML VIAL IV SCH; -IOHEXOL 350 MG/ML 100 ML (OMNIPAQUE 350) VIAL IV ONE; -NS 100 ML (IVPB) BAG IV ONE
[2023-07-19] MEDS ORDERED: METF-399 PO (13:47)
[2023-07-19] MEDS ORDERED: HYDR-3820 PO (13:47)
[2023-07-19] MEDS ORDERED: LOSA50TA63 PO (13:47)
[2023-07-19] MEDS ORDERED: ALBU90AE2 IH (13:47)
[2023-07-19] MEDS ORDERED: FLUT9.9S NS (13:47)
[2023-07-19] MEDS ORDERED: LEVO175C2 PO (13:47)
[2023-07-19] MEDS ORDERED: POTA-330 PO (13:47)
[2023-07-19] MEDS ORDERED: FURO20TA4 PO (13:47)
[2023-07-19] MEDS ORDERED: PREG300C19 PO (13:47)
[2023-07-19] MEDS ORDERED: LEVO200C2 PO (13:47)
[2023-07-19] MEDS ORDERED: MAGN250T13 PO (13:47)
[2023-07-19] MEDS ORDERED: CNC1KV IM (13:47)
[2023-07-19] MEDS ORDERED: ERGO1250 PO (13:47)
== END 2023-07-19 14:17 | disposition home or self-care (01) ==
LOC: PREOP 05:52
PROVIDERS: ATTEND Surgery
DX: Z01.818 Encounter for other preprocedural examination (principal)

== ENCOUNTER → 2023-07-25 | Outpatient (CLI) | payer OTHER ==
[~2023-07-25] MED LIST changes: +ALBU90AE2 IH; +BARIUM for suspension 96% w/w (Vanilla Silq Medium Density) PO ONE; +BARIUM for suspension 98% w/w (Vanilla Silq High Density) PO ONE; +CNC1KV IM; +ERGO1250 PO; +FLUT9.9S NS; +FURO20TA4 PO; +HYDR-3820 PO; +LEVO175C2 PO; +LEVO200C2 PO; +LOSA50TA63 PO; +MAGN250T13 PO; +METF-399 PO; +PANT40TA2 PO; +POTA-330 PO; +PREG300C19 PO; +SUCR1TAB36 PO
--- NOTE | 2023-07-25 11:20 | Diagnostic Imaging Report ---
INDICATION: Difficulty swallowing liquids and pills, getting stuck in the mid throat. TECHNIQUE: Patient ingested effervescent crystals as well as thin and thick barium, and imaging of the esophagus was performed at multiple obliquities. 45 seconds of fluoroscopic time was utilized. Reference air kerma is 45.6 mGy. 28 images were obtained. FINDINGS: Preliminary radiograph of the chest is unremarkable. The esophagus has a smooth contour. No mass or stricture is identified. No hiatal hernia or gastroesophageal reflux was demonstrated. IMPRESSION: Unremarkable esophagram. Dictated by: Dictated on workstation # [id number]
== END ==
LOC: RAD 09:54
PROVIDERS: ATTEND Surgery
DX: R13.10 Dysphagia, unspecified (principal)
CPT/HCPCS: 74220

== ENCOUNTER 2023-07-30 07:38 | Day surgery (SDC) | payer OTHER ==
[~2023-07-30] VITALS: Ht 165.1 cm; Wt 113.8 kg
[~2023-07-30 07:38] MED LIST changes: -BARIUM for suspension 96% w/w (Vanilla Silq Medium Density) PO ONE; -BARIUM for suspension 98% w/w (Vanilla Silq High Density) PO ONE; -PANT40TA2 PO; -SUCR1TAB36 PO
[2023-07-30] MEDS ORDERED: LACTATED RINGERS 1,000 ML 1,000 ML IV STA (07:49)
[2023-07-30 07:59] VITALS: BP 139/74
[2023-07-30] MEDS ORDERED: HURRICAINE EXT TUBE (BENZOCAINE) XX PRN (08:00)
--- NOTE | 2023-07-30 08:02 | Progress Note-Pre Operative ---
Pre-Operative Progress Note Date H&P Reviewed: Jul 30, 2023 Time H&P Reviewed: 08:02 History & Physical: H&P Reviewed, Patient Examed, No changes noted Pre-Operative Diagnosis: epigastric pain, screening colonoscopy LENNY PARKS DO Jul 30, 2023 08:02
[2023-07-30] MEDS ORDERED: MIDAZOLAM INJ 2 MG/2 ML VIAL ONE (08:31)
[2023-07-30] MEDS ORDERED: KETAMINE 50 MG/5 ML SYRINGE ONE (08:40)
[2023-07-30 09:05] VITALS: BP 113/72
--- NOTE | 2023-07-30 09:05 | Progress Note-Post Operative ---
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
[2023-07-30 09:10] VITALS: BP 117/57
[2023-07-30] MEDS ORDERED: SUCR1TAB36 PO (09:11)
[2023-07-30] MEDS ORDERED: PANT40TA2 PO (09:11)
--- NOTE | 2023-07-30 09:13 | Discharge Inst-Simple/Standard ---
Discharge Inst-Standard Discharge Medications New, Converted or Re-Newed RX: Transmitted to Pharmacy Patient Instructions/Follow Up Plan of Care/Instructions/FU: 2 weeks idris Activity as Tolerated: Yes Discharge Diet: Regular Diet LENNY PARKS DO Jul 30, 2023 09:13
[2023-07-30 09:40] VITALS: BP 117/57
--- NOTE | 2023-07-30 12:04 | Anesthesia-General Post-Op ---
MAC Patient Condition Mental Status/LOC: Same as Preop Cardiovascular: Satisfactory Nausea/Vomiting: Absent Respiratory: Satisfactory Pain: Controlled Complications: Absent Post Op Complications Complications None Follow Up Care/Instructions Patient Instructions None needed. Anesthesiology Discharge Order Discharge Order Patient is doing well, no complaints, stable vital signs, no apparent adverse anesthesia problems. No complications reported per nursing. ARIEL PATEL CRNA Jul 30, 2023 12:04
--- NOTE | 2023-07-30 17:44 | OPERATIVE REPORT ---
DATE OF SERVICE: 07/30/2023 PREOPERATIVE DIAGNOSES: Epigastric pain, screening colonoscopy. POSTOPERATIVE DIAGNOSES: Gastritis, superficial ulcerations in the antrum, colon polyps. PROCEDURES: EGD with biopsies, colonoscopy with hot biopsy polypectomy and snare polypectomy. SURGEON: Lenny Ny DO ANESTHESIA: Per RECEIVING MANAGER. ESTIMATED BLOOD LOSS: None. COMPLICATIONS: None. INDICATIONS: The patient is a 53-year-old female, with epigastric abdominal pain and needing screening colonoscopy. She understands risks and benefits of procedures and wished to proceed. Consent was signed in chart. DESCRIPTION OF PROCEDURE: The patient was taken to endoscopy suite, placed in left lateral recumbent position. Timeout was performed. Scope was inserted in the mouth, down the esophagus, stomach, and into the duodenum without difficulty. No polyps, masses or ulcerations within the duodenum. Scope was slowly retracted back into stomach, where it was further insufflated. Gastritis appearance of some superficial ulcerations in the antrum. Biopsy of this area was obtained. Scope was retroflexed noting no other pathology. Scope was returned to its normal position, slowly withdrawn until the distal esophagus. Biopsy of GE junction was obtained. Scope was slowly retracted back until completely removed, noting no other pathology. Digital rectal exam was performed. No palpable polyps, masses or ulcerations. Scope was inserted in the rectum and advanced all the way to the cecum with minimal difficulty. Prep was adequate. Scope was then slowly retracted back. No polyps, masses or ulcerations within the cecum. In the ascending, a large polyp was present, which snare polypectomy was performed. Blanco Net was used to encounter this and then slowly withdrawn. This was obtained for specimen. Scope was then continuously retracted back from the ascending colon to the point of the snare polypectomy. There were no polyps, masses or ulcerations in the ascending, transverse, descending and sigmoid colon. Once in the rectum, another small polyp was present, which hot biopsy polypectomy was performed. Scope was retroflexed noting no other pathology. Scope was returned to its normal position, slowly withdrawn until completely removed. The patient tolerated the procedure well without any complications, taken to recovery room in stable condition. RECOMMENDATIONS: The patient will be put on Protonix 40 mg daily and Carafate 1 gram 4 times a day. We will need repeat colonoscopy in one year due to larger polyp that had been snared in the ascending colon. The patient will follow up in 2 weeks. Job ID: [id number] DocumentID: [id number] Dictated Date: 07/30/2023 09:04:14 Wrapper Operator Date: 07/30/2023 17:43:00 Dictated By: LENNY NY DO
== END 2023-07-30 09:40 | disposition home or self-care (01) ==
LOC: ENDO 07:38
PROVIDERS: ATTEND Surgery
DX: Z12.11 Encounter for screening for malignant neoplasm of colon (principal); D12.2 Benign neoplasm of ascending colon; K31.89 Other diseases of stomach and duodenum; K62.89 Other specified diseases of anus and rectum; G47.33 Obstructive sleep apnea (adult) (pediatric); E66.9 Obesity, unspecified; Z68.41 Body mass index [BMI] 40.0-44.9, adult; Z99.81 Dependence on supplemental oxygen
CPT/HCPCS: 82947

== ENCOUNTER → 2023-09-30 | Outpatient (CLI) | payer OTHER ==
[~2023-09-30] MED LIST changes: +PANT40TA2 PO; -PREG300C19 PO; +PREG300C20 PO; +SUCR1TAB36 PO
[2023-09-30] MEDS: CATHETER FLUSH 10 ML SYR IVP PRN (08:05)
[2023-09-30 09:32] VITALS: BP 141/80
--- NOTE | 2023-09-30 11:52 | Cardiology Stress Test Report ---
Stress Test Report Date of Procedure/Referring: Date of Procedure: Sep 30, 2023 PCP Imani Rayo Admitting Physician Admitting Physician: Attending Physician: Darrell Gonzalez MD Baseline Heart Rate: 66 Baseline Blood Pressure: Blood Pressure Systolic: 141 Blood Pressure Diastolic: 80 Vital Signs Date Time Temp Pulse Resp B/P (MAP) Pulse Ox O2 Delivery O2 Flow Rate FiO2 09/30/23 09:32 66 141/80 (100) Baseline Vital Signs Vital Signs Date Time Temp Pulse Resp B/P (MAP) Pulse Ox O2 Delivery O2 Flow Rate FiO2 09/30/23 09:32 66 141/80 (100) Baseline EKG: Baseline EKG: NSR Summary: After explaining the procedure and details to the patient, she signed the consent and was brought to the stress nuclear laboratory. Patient exercised on standard Jean-Pierre protocol, EKG, heart rate and blood pressure were monitored continuously, resting and stress doses of radio tracer were injected, imaging was acquired and reviewed in the short axis, horizontal long axis and vertical long axis views Patient was able to exercise for a total of 7 minutes on Jean-Pierre protocol, METs 8.5 Maximum heart rate 145 Maximum blood pressure 167/80 Stress EKG, Minimal nondiagnostic changes Recovery EKG, Return to baseline TID: 1.01 SSS: 17 SDS: 12 EF: 69 Conclusion: Good exercise tolerance for 7 minutes on standard Jean-Pierre protocol, 8.5 METS achieving 86% of maximal expected heart rate Appropriate heart rate and blood pressure response to exercise return to baseline during recovery Minimal nondiagnostic EKG changes with exercise return to baseline during recovery Reversible ischemia involving the anterior wall and anterior lateral wall Normal left ventricular size, ejection fraction 69% Cc ELIZA Moore BASHAR J MD Sep 30, 2023 11:52
== END ==
LOC: CARD 07:45
PROVIDERS: ATTEND Internal Medicine Cardiovascular Disease
DX: I25.89 Other forms of chronic ischemic heart disease (principal)
CPT/HCPCS: 78452; 93017; A9502

== ENCOUNTER 2023-10-02 10:47 | Day surgery (SDC) | payer OTHER ==
[~2023-10-02] VITALS: Ht 162 cm; Wt 113.0 kg
[2023-10-02] VITALS (7 sets, daily range): BP systolic 106–135; BP diastolic 65–87
[2023-10-02] MEDS ORDERED: ASPIRIN 81 MG CHEWABLE TABLET PO ONE (11:00)
--- NOTE | 2023-10-02 11:00 | ED Chest Pain ---
General Chief Complaint: Chest Pain Stated Complaint: CHEST PAIN, SOB Nursing Triage Note: ARRIVED VIA AMB FROM DR GONZALEZ OFFICE. PT SCHEDULED FOR A HEART CATH TODAY ET WATING ON INSURANCE APPROVAL. COMPLAINS OF CHEST PAIN. PT APPEARS ANXIOUS ET IS CRYING. Source: patient Exam Limitations: no limitations History of Present Illness Date Seen by Provider: Oct 02, 2023 Time Seen by Provider: 10:49 Initial Comments 53-year-old female sent from Dr. Gonzalez's office for chest pain. She tells me she has been having these pains associated with some shortness of breath for 6 months. They seem to be intermittent, sporadic with no obvious aggravating or alleviating factors. They are typically sharp and stabbing when severe but at baseline or dull pressure. She had a stress test on Saturday and states the pain has been constant throbbing in her left anterior chest straight through to her back since that time. She denies any fevers chills or cough. Her symptoms are not specifically associated with exertion. She has a history of high blood pressure. No unilateral lower extremity pain, swelling, recent surgeries or long distance travel. All other systems reviewed and negative except documented per HPI. Voice recognition software was used to help create this chart Allergies and Home Medications Allergies Coded Allergies: Penicillins (Verified Allergy, Unknown, 07/19/23) Sulfa (Sulfonamide Antibiotics) (Verified Allergy, Unknown, 07/19/23) gluten (Verified Allergy, Unknown, 07/19/23) latex (Verified Allergy, Unknown, 07/19/23) levofloxacin (Verified Allergy, Unknown, 07/19/23) Patient Home Medication List Home Medication List Reviewed: Yes Albuterol Sulfate (Proair Digihaler) 90 Mcg Aer.pw.bas, 90 MCG IH PRN PRN for SHORTNESS OF BREATH, (Reported) Entered as Reported by: Reina Meyer on 07/19/23 1347 Cyanocobalamin (Cyanocobalamin Injection) 1,000 Mcg/Ml Inj, 1,000 MCG IM MONTHLY, (Reported) Entered as Reported by: Reina Meyer on 07/19/23 1347 Ergocalciferol (Vitamin D2) (Vitamin D2) 1,250 Mcg (31238 Unit) Capsule, 1,250 MCG PO WEEK, (Reported) Entered as Reported by: Reina Meyer on 07/19/23 1347 Fluticasone Propionate (Flonase Allergy Relief) 50 Mcg/Actuation [place].susp, 1 SPRAY NS DAILY PRN for CONGESTION, (Reported) Entered as Reported by: Reina Meyer on 07/19/23 134 Furosemide (Furosemide) 20 Mg Tablet, 20 MG PO DAILY PRN for SWELLING, (Reported) Entered as Reported by: Reina Meyer on 07/19/23 134 Hydrocodone/Acetaminophen (Hydrocodone-Acetamin 10-325 mg) 10 Mg-325 Mg Tablet, 2 EACH PO Q6H PRN for PAIN, (Reported) Entered as Reported by: Reina Meyer on 07/19/23 134 Levothyroxine Sodium (Levothyroxine) 175 Mcg Capsule, 175 MCG PO UD, (Reported) Entered as Reported by: Reina Meyer on 07/19/231346 Levothyroxine Sodium (Levothyroxine) 200 Mcg Capsule, 200 MCG PO UD, (Reported) Entered as Reported by: Reina Meyer on 07/19/23 134 Losartan Potassium (Losartan Potassium) 50 Mg Tablet, 50 MG PO DAILY, (Reported) Entered as Reported by: Reina Meyer on 07/19/23 134 Magnesium Oxide (Magnesium) 250 Mg Tablet, 250 MG PO QID, (Reported) Entered as Reported by: Reina Meyer on 07/19/23 134 Metformin HCl (Metformin HCl) 1,000 Mg Tablet, 1,000 MG PO BID Prescribed by: RAUL GONZALEZ on 10/02/23 1303 Pantoprazole Sodium (Protonix) 40 Mg Tablet.dr, 40 MG PO DAILY Prescribed by: LENNY PARKS on 07/30/23 0911 Potassium Chloride (Potassium Chloride) 20 Meq Tablet.er, 20 MEQ PO TID, (Reported) Entered as Reported by: Reina Meyer on 07/19/23 134 Pregabalin (Pregabalin) 300 Mg Capsule, 300 MG PO BID, (Reported) Entered as Reported by: Reina Meyer on 07/19/23 134 Sucralfate (Carafate) 1 Gram Tablet, 1 GM PO QID Prescribed by: LENNY PARKS on 07/30/23 0911 Review of Systems Review of Systems Constitutional: see HPI Past Owjlwih-Yitunl-Fsgard Hx Patient Social History Tobacco Use?: No Alcohol Use?: No Seasonal Allergies Seasonal Allergies: No Past Medical History Surgeries: Yes (FOOT SURGERY, CARPAL TUNNEL, HERNIA AGE 7, ) Abdominal, Gallbladder, Hysterectomy, Orthopedic Respiratory: Yes (SOB) Sleep Apnea Currently Using CPAP: Yes Currently Using BIPAP: No Cardiac: Yes Hypertension Neurological: Yes ("CONVULSIONS AT AGE 2"-FROM FEVER) 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 Sexually Transmitted Disease: No HIV/AIDS: No Genitourinary: Yes Kidney Stones Gastrointestinal: Yes (CILIAC DISEASE) Musculoskeletal: Yes Fibromyalgia, Rheumatoid Arthritis, Chronic Back Pain Endocrine: Yes Hypothyroidsim, Diabetes, Non-Insulin dep HEENT: Yes Loss of Vision: Bilateral Hearing Impairment: Denies Cancer: No Psychosocial: Yes Anxiety Integumentary: No Blood Disorders: No Adverse Reaction/Blood Tranf: No Physical Exam Vital Signs Vital Signs - First Documented 10/02/23 10:47 Temp 36.3 Pulse 112 Resp 16 Capillary Refill : Less Than 3 Seconds Height, Weight, BMI Height: 5'4.00" Weight: 220lbs. oz. [id number]; 43.00 BMI Method:Stated General Appearance: WD/WN, Anxious HEENT: Normal ENT Inspection, Pharynx Normal Neck: Normal Inspection, Non Tender, Supple Respiratory: Chest Non Tender, Lungs Clear, Normal Breath Sounds, No Accessory Muscle Use, No Respiratory Distress Cardiovascular: Regular Rate, Rhythm, No Murmur, Normal Peripheral Pulses Gastrointestinal: Normal Bowel Sounds, No Organomegaly, Non Tender, Soft Extremity: Normal Capillary Refill, Normal Inspection, Non Tender, No Calf Tenderness Neurologic/Psychiatric: Alert, Oriented x3 Skin: Normal Color, Warm/Dry Progress/Results/Core Measures Results/Orders Lab Results Laboratory Tests Test 10/02/23 10:50 Range/Units White Blood Count 8.1 4.3-11.0 10^3/uL Red Blood Count 4.77 3.80-5.11 10^6/uL Hemoglobin 14.1 11.5-16.0 g/dL Hematocrit 43 35-52 % Mean Corpuscular Volume 91 80-99 fL Mean Corpuscular Hemoglobin 30 25-34 pg Mean Corpuscular Hemoglobin Concent 33 32-36 g/dL Red Cell Distribution Width 12.3 10.0-14.5 % Platelet Count 274 130-400 10^3/uL Mean Platelet Volume 9.3 9.0-12.2 fL Immature Granulocyte % (Auto) 0 % Neutrophils (%) (Auto) 60 42-75 % Lymphocytes (%) (Auto) 31 12-44 % Monocytes (%) (Auto) 8 0-12 % Eosinophils (%) (Auto) 1 0-10 % Basophils (%) (Auto) 0 0-10 % Neutrophils # (Auto) 4.8 1.8-7.8 10^3/uL Lymphocytes # (Auto) 2.5 1.0-4.0 10^3/uL Monocytes # (Auto) 0.6 0.0-1.0 10^3/uL Eosinophils # (Auto) 0.1 0.0-0.3 10^3/uL Basophils # (Auto) 0.0 0.0-0.1 10^3/uL Immature Granulocyte # (Auto) 0.0 0.0-0.1 10^3/uL Sodium Level 139 135-145 MMOL/L Potassium Level 4.2 3.6-5.0 MMOL/L Chloride Level 102 98-107 MMOL/L Carbon Dioxide Level 28 21-32 MMOL/L Anion Gap 9 5-14 MMOL/L Blood Urea Nitrogen 12 7-18 MG/DL Creatinine 0.80 0.60-1.30 MG/DL Estimat Glomerular Filtration Rate 88 BUN/Creatinine Ratio 15 Glucose Level 127 H 70-105 MG/DL Calcium Level 9.4 8.5-10.1 MG/DL Corrected Calcium 9.1 8.5-10.1 MG/DL Magnesium Level 1.9 1.6-2.4 MG/DL Total Bilirubin 0.5 0.1-1.0 MG/DL Aspartate Amino Transf (AST/SGOT) 22 5-34 U/L Alanine Aminotransferase (ALT/SGPT) 37 0-55 U/L Alkaline Phosphatase 91 40-136 U/L Troponin I < 0.028 <0.028 NG/ML Total Protein 7.8 6.4-8.2 GM/DL Albumin 4.4 3.2-4.5 GM/DL My Orders Orders - RADHIKA ROMERO DO Ekg Tracing (10/02/23 10:48) Cbc And Automated Diff (10/02/23 10:57) Magnesium (10/02/23 10:57) Chest 1 View, Ap/Pa Only (10/02/23 10:57) Ekg Tracing (10/02/23 10:57) Comprehensive Metabolic Panel (10/02/23 10:57) Monitor-Rhythm Ecg Trace Only (10/02/23 10:57) Ed Iv/Invasive Line Start (10/02/23 10:57) Troponin I [place] (10/02/23 10:57) Aspirin Chewable Tablet (Aspirin Chewabl (10/02/23 11:00) Ns Iv 1000 Ml (Ns Iv 1000 Ml) (10/02/23 12:00) Ed Admission (Communication) (10/02/23 11:55) Vital Signs/I&O 10/02/23 10:47 Temp 36.3 Pulse 112 Resp 16 B/P (MAP) Departure Communication (Admissions) Dr. Gonzalez saw the patient in the emergency department and decides to take her to the [facility]. EKG is not ischemic and troponin is negative. Work-up is otherwise unremarkable. She is hemodynamically stable. Impression Primary Impression: Chest pain Qualified Codes: R07.9 - Chest pain, unspecified Disposition: ADMITTED INPATIENT Condition: Stable Admissions Decision to Admit Reason: Admit from ER (General) Departure-Patient Inst. Referrals: JOSE DAVID DESAI (PCP/Family) Primary Care Physician Scripts Metformin HCl (Metformin HCl) 1,000 Mg Tablet 1000 MG PO BID, #1 TAB Hold metformin for 48 hours Prov: RAUL GONZALEZ MD 10/02/23 RADHIKA ROMERO DO Oct 02, 2023 11:00
[2023-10-02 11:04] LABS: BASOPHILS % (AUTO) 0 % (0-10); EOSINOPHILS # (AUTO) 0.1 10^3/uL (0.0-0.3); EOSINOPHILS % (AUTO) 1 % (0-10); HEMATOCRIT 43 % (35-52); HEMOGLOBIN 14.1 g/dL (11.5-16.0); LYMPHOCYTES # (AUTO) 2.5 10^3/uL (1.0-4.0); LYMPHOCYTES % (AUTO) 31 % (12-44); MEAN CORPUSCULAR HEMOGLOBIN 30 pg (25-34); MEAN CORPUSCULAR HGB CONC 33 g/dL (32-36); MEAN CORPUSCULAR VOLUME 91 fL (80-99); MEAN PLATELET VOLUME 9.3 fL (9.0-12.2); MONOCYTES # (AUTO) 0.6 10^3/uL (0.0-1.0); MONOCYTES % (AUTO) 8 % (0-12); NEUTROPHILS # (AUTO) 4.8 10^3/uL (1.8-7.8); NEUTROPHILS % (AUTO) 60 % (42-75); PLATELET COUNT 274 10^3/uL (130-400); WHITE BLOOD COUNT 8.1 10^3/uL (4.3-11.0)
[2023-10-02 11:11] LABS: ALBUMIN 4.4 GM/DL (3.2-4.5); CHLORIDE 102 MMOL/L (98-107); POTASSIUM 4.2 MMOL/L (3.6-5.0); SODIUM 139 MMOL/L (135-145)
[2023-10-02 11:12] LABS: CALCIUM 9.4 MG/DL (8.5-10.1)
[2023-10-02 11:13] LABS: GLUCOSE 127 MG/DL (70-105)
[2023-10-02 11:14] LABS: TOTAL PROTEIN 7.8 GM/DL (6.4-8.2)
[2023-10-02 11:15] LABS: BILIRUBIN,TOTAL 0.5 MG/DL (0.1-1.0); CARBON DIOXIDE 28 MMOL/L (21-32)
[2023-10-02 11:17] LABS: ALKALINE PHOSPHATASE 91 U/L (40-136); GFR ESTIMATED 88
[2023-10-02 11:18] LABS: BUN/CREATININE RATIO 15
[2023-10-02 11:20] LABS: ALANINE AMINOTRANSFERASE 37 U/L (0-55); MAGNESIUM 1.9 MG/DL (1.6-2.4)
[2023-10-02] MEDS ORDERED: NS IV 1000 ML 1,000 ML IV SCH ×2 (12:00→13:15)
[2023-10-02] MEDS ORDERED: NITROGLYCERIN 0.4 MG SL TABLETS BTL 25'S SL PRN (12:00)
--- NOTE | 2023-10-02 12:05 | Diagnostic Imaging Report ---
EXAMINATION: Chest, 1 view. HISTORY: Chest pain. COMPARISON: 07/18/2019 and 01/02/2022. FINDINGS: The lung volumes are normal. No focal consolidation is seen. No large pleural effusion or pneumothorax is seen. The cardiomediastinal silhouette is normal in size and contour. No acute osseous abnormality is seen. IMPRESSION: No acute pleuroparenchymal process. Dictated by: Dictated on workstation # [id number]
--- NOTE | 2023-10-02 12:06 | Consultation-Cardiology ---
HPI-Cardiology Cardiology Consultation Date of Consultation 10/02/23 Date of Admission Time Seen by Provider: 12:02 Indication: Chest pain HPI Patient is a 53 y/o female with history of chest pain, HTN, DM. Presented to the ER with complaints of chest pain. Reports she had been having increasing chest pain and associated dyspnea on exertion since her stress test last week. C/o active chest pain, substernal and left sided, reporting it as pressure. Patient had abnormal stress test and was scheduled for cardiac catheterization as outpatient but d/t her increasing chest pain proceeded to the ER. Home Medications & Allergies Allergies: Coded Allergies: Penicillins (Verified Allergy, Unknown, 07/19/23) Sulfa (Sulfonamide Antibiotics) (Verified Allergy, Unknown, 07/19/23) gluten (Verified Allergy, Unknown, 07/19/23) latex (Verified Allergy, Unknown, 07/19/23) levofloxacin (Verified Allergy, Unknown, 07/19/23) Home Medication List Reviewed: Yes KAJ-Cexhyw-Psqdtc Hx Patient Social History Marital Status: Smoking Status: Never a Smoker Recent Hopitalizations: No Alcohol Use?: No Past Medical History HTN, DM, anxiety Family Medical History Significant Family History: No Pertinent Family Hx Review of Systems-General Review of Systems Constitutional: see HPI; No fever, No malaise EENTM: see HPI; No blurred vision, No double vision, No eye pain, No vision loss Respiratory: see HPI; No cough; dyspnea on exertion; No orthopnea, No phlegm; short of breath Cardiovascular: see HPI, chest pain, edema; No Hx of Intervention, No syncope Gastrointestinal: see HPI Genitourinary: see HPI Musculoskeletal: see HPI Skin: see HPI Psychiatric/Neurological: See HPI, Anxiety Reviewed Test Results Reviewed Test Results Lab Laboratory Tests 10/02/23 10:50: White Blood Count 8.1, Red Blood Count 4.77, Hemoglobin 14.1, Hematocrit 43, Mean Corpuscular Volume 91, Mean Corpuscular Hemoglobin 30, Mean Corpuscular Hemoglobin Concent 33, Red Cell Distribution Width 12.3, Platelet Count 274, Mean Platelet Volume 9.3, Immature Granulocyte % (Auto) 0, Neutrophils (%) (Auto) 60, Lymphocytes (%) (Auto) 31, Monocytes (%) (Auto) 8, Eosinophils (%) (Auto) 1, Basophils (%) (Auto) 0, Neutrophils # (Auto) 4.8, Lymphocytes # (Auto) 2.5, Monocytes # (Auto) 0.6, Eosinophils # (Auto) 0.1, Basophils # (Auto) 0.0, Immature Granulocyte # (Auto) 0.0, Sodium Level 139, Potassium Level 4.2, Chloride Level 102, Carbon Dioxide Level 28, Anion Gap 9, Blood Urea Nitrogen 12, Creatinine 0.80, Estimat Glomerular Filtration Rate 88, BUN/Creatinine Ratio 15, Glucose Level 127H, Calcium Level 9.4, Corrected Calcium 9.1, Magnesium Level 1.9, Total Bilirubin 0.5, Aspartate Amino Transf (AST/SGOT) 22, Alanine Aminotransferase (ALT/SGPT) 37, Alkaline Phosphatase 91, Troponin I < 0.028, Total Protein 7.8, Albumin 4.4 ECG Impression ECG Initial ECG Rhythm: Normal Sinus Physical Exam Physical Exam Vital Signs Vital Signs - First Documented 10/02/23 10:47 Temp 36.3 Pulse 112 Resp 16 Capillary Refill : Less Than 3 Seconds Height, Weight, BMI Height: 5'4.00" Weight: 220lbs. oz. 99.767408bw; 43.00 BMI Method:Stated General Appearance: WD/WN, Anxious HEENT: Normal ENT Inspection, Pharynx Normal Neck: Normal Inspection, Non Tender, Supple Respiratory: Chest Non Tender, Lungs Clear, Normal Breath Sounds, No Accessory Muscle Use, No Respiratory Distress Cardiovascular: Regular Rate, Rhythm, No Murmur, Normal Peripheral Pulses Gastrointestinal: Normal Bowel Sounds, No Organomegaly, Non Tender, Soft Extremity: Normal Capillary Refill, Normal Inspection, Non Tender, No Calf Tenderness Neurologic/Psychiatric: Alert, Oriented x3 Skin: Normal Color, Warm/Dry A/P-Cardiology Admission Diagnosis Chest pain Abnormal stress test HTN DM Assessment/Plan Chest pain, resembling angina. Patient reports having increasing chest pain over the past week, having active chest pain at this time.Associated dyspnea on exertion. EKG done showing SR with no acute ST changes. Troponin negative. I will give nitro. Patient has an abnormal stress test suggestive of coronary artery disease, she was scheduled for cardiac catheterization as an outpatient, we will proceed with urgent cardiac catheterization possible PTCA. Abnormal stress test on September 30, 2023 with good exercise tolerance for 7 minutes on standard Jean-Pierre protocol achieving 86% of maximal expected heart rate. She had reversible ischemia involving the anterior wall and anterior lateral wall with stress score 17, SDS 12, ejection fraction 69% Planning for cardiac catheterization for further evaluation 2D echo was done on August 08, 2023 with normal LV size, ejection fraction 55 to 65%, grade 1 diastolic dysfunction, PA pressure 30 mmHg Diabetes mellitus, followed and managed by primary care physician Hypertension,restart home blood pressure medications and continue to monitor. Questionable hyperlipidemia, I will evaluate lipid profile Hypothyroidism, followed and managed by primary care physician History of restless leg syndrome, having difficulty achieving adequate control Patient was seen at [facility] and being managed titrating down her ropinirole. BMI 41, working on weight loss. Having difficulty with it. Anxiety Thank you for allowing us to participate in the management of Ms Costello. This is Ayaan Solitario PA-C, as a scribe for Dr. Gonzalez. Patient was seen and evaluated with Ayaan, I interviewed and examined the patient. She has an abnormal stress test with reversible ischemia involving the anterior wall and anterior lateral wall she was seen in my office yesterday, she is on the schedule for cardiac catheterization as an outpatient, started to have accelerating angina, active chest pain, on my evaluation still having active chest pain and fairly anxious. Recommended cardiac catheterization possible PTCA AYAAN SOLITARIO PA-C Oct 02, 2023 12:06 RAUL GONZALEZ MD Oct 02, 2023 12:24
[2023-10-02] MEDS ORDERED: fentaNYL INJECTION 100 MCG/2 ML VIAL ONE ×2 (12:17→12:42)
[2023-10-02] MEDS ORDERED: MIDAZOLAM INJ 5 MG/5 ML VIAL ONE (12:17)
[2023-10-02] MEDS ORDERED: VERAPAMIL 5 MG/2 ML (CALAN) VIAL IV ONE (12:20)
[2023-10-02] MEDS ORDERED: HEParin (CATH LAB) 2,000 ML IV ONE (12:20)
[2023-10-02] MEDS ORDERED: LIDOCAINE 1% INJ 20 ML VIAL ONE (12:20)
[2023-10-02] MEDS ORDERED: NITRO DRIP 25000 MCG/D5W 250 ML IV ONE (12:20)
[2023-10-02] MEDS ORDERED: HEParin 1000 UNIT/ML (10ML VIAL) FOR BOLUS ONE (12:20)
--- NOTE | 2023-10-02 12:25 | Cardiac Procedure Note-CS/ASA ---
Pre-Procedure Note Pre-Op Procedure Note Date of Available H&P: Oct 02, 2023 Date H&P Reviewed: Oct 02, 2023 Time H&P Reviewed: 12:24 History & Physical: H&P Reviewed, Patient Examed, No changes noted Pre-Operative Diagnosis: CP Moderate Sedation PreProcedure Time 12:24 ASA Score 3 Airway Lungs Heart ASA score ASA 1: a normal healthy patient ASA 2: a patient with a mild systemic disease (mid diabetes, controlled hypertension, obesity ASA 3: a patient with a severe systemic disease that limits activity (angina, COPD, prior Myocardial infarction) ASA 4: a patient with an incapacitating disease that is a constant threat to life (CHF, renal failure) ASA 5: a moribund patient not expected to survive 24 hrs. (ruptured aneurysm) ASA 6: a declared brain- patient whose organs are being harvested. For emergent operations, add the letter E after the classification Mallampati Classification Grade 3 Sedation Plan Analgesia, Amnesia, Plan communicated to team members, Discussed options with patient/fam, Discussed risks with patient/fam The patient is an appropriate candidate to undergo the planned procedure, sedation, and anesthesia. The patient immediately re-assessed prior to indication. RAUL CORTES MD Oct 02, 2023 12:25
[2023-10-02] MEDS ORDERED: METF-399 PO (13:03)
--- NOTE | 2023-10-02 13:04 | Discharge Inst-Post CATH ---
Discharge Inst-CATH/EP Problems Reviewed?: Yes Post Cardiac Cath/EP D/C Inst Follow Up/Plan Appointment with Dr. Gonzalez's office in 2 to 4 weeks <b>CARDIAC CATH/EP PROCEDURE DISCHARGE INSTRUCTIONS</b> ACTIVITY * Go Home directly and rest. * Limit activity of the leg (or wrist if it was used) for 7 days including aer obics, swimming, jogging, bicycling, etc. * Restrict stair-climbing for 7 days if possible, if not, climb up with your non-cath leg, then bring together on the same step. * Avoid lifting, pushing, pulling or excessive movement of the affected extremi ty for 7 days. * Customary sexual activity may be resumed after 2 days-use caution not to use a position that strains or causes pain to the affected extremity. * No driving for 24 hours. * NO SMOKING. * Avoid straining for bowel movements for 7 days. * Gentle walking on level ground is allowed. * Returning to work will depend on the type of procedure and the results. Your doctor will discuss this with you. CALL YOUR DOCTOR FOR ANY OF THE FOLLOWING: *If bleeding from the puncture site occurs- Apply gentle pressure to site with clean cloth and call your doctor or EMS. * If a knot or lump forms under the skin, increases in size, or causes pain. * If bruising appears to be worsening or moving further down your leg instead of disappearing. * Temperature above 101 F. CARE OF YOUR GROIN INCISION; * Bruising or purple discoloration of the skin near the puncture site is common. * You may shower only, no bathtub bathing for 5 days. Be careful to avoid slipping as your leg may feel stiff. * If a closure device was used on your femoral artery, please see the attached guide regarding care of the device and your leg. * Leave dressing on FOR 24 hours. CARE OF YOUR WRIST INCISION; * Bruising or purple discoloration of the skin near the puncture site is common. * You may shower. * DO NOT submerge wrist. * Leave dressing on FOR 24 hours. RAUL GONZALEZ MD Oct 02, 2023 13:04
--- NOTE | 2023-10-02 13:08 | Cardiac Cath Report ---
Cardiac Cath Report Physician (s)/Is/It Project Manager (s) Physician RAUL CORTES MD Pre-Procedure Diagnosis Pre-Procedure Diagnosis: CP Post-Procedure Note Procedure Start Date: Oct 02, 2023 Name of Procedure: Left heart catheterization Findings/Procedure Note PROCEDURE NOTE: 53-year-old lady with history of diabetes mellitus, hypertension, hyperlipidemia, has been having chest pain, had an abnormal stress test and she was on the schedule for cardiac catheterization, had significant chest pain and came into the emergency room for evaluation, on my evaluation she was still having active chest pain, cardiac catheterization urgently was advised. After explaining the procedure to the patient, all pros and cons were explained, all questions were answered. The patient signed the consent and then she was placed in the cardiac catheterization laboratory. Groin was prepped in SL fashion local anesthesia was used. Sheath placed in the right radial artery, [place] catheter was advanced to the left ventricular cavity, pressure was measured, pullback LV to aorta was done, engage the right and left coronary system, angiogram was done. Pulled back to the aortic arch and aortic arch angiogram was done. At the end of the procedure the sheath was removed. Vascular band was used FINDINGS: Hemodynamics LV 114/10, end-diastolic pressure of 10 Aorta 112/77 mean of 94 ANATOMY: Left Main is free of obstructive disease Left Anterior Descending is free of obstructive disease Left Circumflex is free of obstructive disease Right Coronary Artery is dominant artery with no obstructive disease LV Gram was not done, pressure was measured Aorta was evaluated with aortic arch angiogram showing normal aortic arch, no dissection or aneurysm, normal origin of the brachiocephalic artery and left carotid artery, the left subclavian artery was not well visualized. CONCLUSION: Chest pain is probably noncardiac No significant obstructive disease in the coronary system Normal left ventricular end-diastolic pressure Normal aortic arch and great vessels of the neck DISCUSSION AND RECOMMENDATION: Planning for discharge and follow-up as an outpatient Anesthesia Type: Conscious Sedation Estimated blood loss (mL): 10 ml Contrast Amount: 40 ml Total Radiation Dose: 693 mGy Post-Procedure Diagnosis Post-operative diagnosis: Chest pain Coronary artery disease Hypertension Hyperlipidemia Diabetes mellitus RAUL CORTES MD Oct 02, 2023 13:08
== END 2023-10-02 15:35 | disposition home or self-care (01) ==
LOC: EDUNIT# 10:47 → ER 10:48 → CATH 12:07
PROVIDERS: ATTEND Internal Medicine Cardiovascular Disease
DX: R07.9 Chest pain, unspecified (principal); I25.10 Atherosclerotic heart disease of native coronary artery without angina pectoris; I10 Essential (primary) hypertension; E11.9 Type 2 diabetes mellitus without complications; E03.9 Hypothyroidism, unspecified; G25.81 Restless legs syndrome; F41.9 Anxiety disorder, unspecified; E78.5 Hyperlipidemia, unspecified; Z79.84 Long term (current) use of oral hypoglycemic drugs; Z79.899 Other long term (current) drug therapy; Z91.040 Latex allergy status
CPT/HCPCS: 36221; 71045; 80053; 83735; 84484; 85025; 93005; 93041; 93458; 99284; C1894; 36415